=== PATIENT | female | born 1960 | race Caucasian/White ===

== ENCOUNTER 2017-05-23 07:17 | Inpatient (IN) | payer OTHER ==
[~2017-05-23] VITALS: Ht 165.1 cm; Wt 88.5 kg
--- NOTE | 2017-05-23 12:00 | NUR ---
PRE ASSESSMENT: A 56 YO FEMALE WITH STEADY GAIT IN INTAKE . BP 117/69 P 108 R 18 T 96.9 SHE REPORTS MEDICAL HX OF MIGRAINES AND CHRONIC PAIN TO R ANKLE AND WRIST FROM PREVIOUS FX.SHE REPORTS MIGRAINES,INSOMNIA AND HYPERLIPIDEMIA. SHE STATES SHE HAS BEEN ON SUBOXONE MAINTENANCE FOR PAIN AND STOPPED IT 2 WEEKS AGO BUT TOOK 2 MG YESTERDAY AND 2 MG SL THIS AM ABOUT 10AM. SHE ALSO STATES SHE TAKES TEMAZEPAM 120MG PO NIGHTLY AND CANNOT STOP AND FEELS SHE NEEDS HELP GETTING OFF THE PILLS. SHE WAS PRESCRIBED CLONIDINE AND ROBAXIN TO COME SUBOXONE AND HAS BEEN TAKING THAT AT HOME WELL CYMBALTA FOR DEPRESSION. SHE TAKES MAXALT PRN FOR MIGRAINES AND BROUGHT HOME MEDS IN WITH HER. SHE STATES SHE IS FEARFUL ABOUT COMING IN AND NEEDS HELP. ALLERGY TO COMPAZINE. SHE DENIES SEIZURE HISTORY. WILL ASSESS PT ON UNIT.
[2017-05-23] MEDS ORDERED: ONDANSETRON 4 MG/2 ML VIAL IM PRN (12:15)
[2017-05-23] MEDS ORDERED: diphenhydrAMINE 50 MG CAPSULE PO PRN (12:15)
[2017-05-23] MEDS ORDERED: ONDANSETRON ODT 4 MG TAB.RAPDIS SL PRN (12:15)
[2017-05-23] MEDS ORDERED: LORAZEPAM 2 MG/1 ML VIAL IM PRN (12:15)
[2017-05-23] MEDS ORDERED: MAGNESIUM HYDROXIDE 30 ML LIQUID UDC PO PRN (12:15)
[2017-05-23] MEDS ORDERED: LOPERAMIDE HCL 2 MG CAPSULE PO PRN ×2 (12:15)
[2017-05-23] MEDS ORDERED: LORAZEPAM 1 MG TABLET PO PRN ×2 (12:15)
[2017-05-23] MEDS ORDERED: MIRALAX 17 GM POWD.PACK PO PRN (12:15)
[2017-05-23] MEDS ORDERED: MAG HYDROX/AL HYDROX/SIMETH 30 ML LIQUID UDC PO PRN (12:15)
[2017-05-23] MEDS ORDERED: BUPRENORPHINE HCL 2 MG TAB.SUBL SL PRN (12:15)
[2017-05-23] MEDS ORDERED: METHOCARBAMOL 750 MG TABLET PO PRN (12:15)
[2017-05-23] MEDS ORDERED: ASPIRIN/ACETAMINOPHEN/CAFFEINE TABLET PO PRN ×2 (12:15→15:00)
[2017-05-23] MEDS ORDERED: QUET100T PO (12:18)
[2017-05-23] MEDS ORDERED: TOPI25TA49 PO (12:18)
[2017-05-23] MEDS ORDERED: MELA5TAB PO (12:18)
[2017-05-23] MEDS ORDERED: RIZA10TA27 PO (12:18)
[2017-05-23] MEDS ORDERED: ONDA4TAB10 PO (12:18)
[2017-05-23] MEDS ORDERED: DULO20CA PO (12:18)
[2017-05-23] MEDS ORDERED: GABA-534 PO (12:18)
[2017-05-23] MEDS ORDERED: METH-406 PO (12:18)
[2017-05-23] MEDS ORDERED: MAGN400C PO (12:18)
[2017-05-23] MEDS ORDERED: CLON0.1T PO (12:18)
[2017-05-23] MEDS ORDERED: AMOX1TAB15 PO (12:18)
[2017-05-23 13:00] VITALS: BP 117/69
[2017-05-23 13:03] LABS: BASOPHILS # (AUTO) 0.1 K/uL (0.0-8.0); BASOPHILS % (AUTO) 0.8 % (0.0-2.0); EOSINOPHILS # (AUTO) 0.1 K/uL (0.0-0.7); EOSINOPHILS % (AUTO) 1.1 % (0.0-7.0); HEMATOCRIT 44.8 % (37-47); HEMOGLOBIN 14.8 G/DL (12.0-16.0); LYMPHOCYTES # (AUTO) 2.9 K/UL (0.8-4.8); LYMPHOCYTES % (AUTO) 41.1 % (20.5-51.5); MEAN CORPUSCULAR HGB CONC 33 g/dL (32.0-37.0); MEAN CORPUSCULAR VOLUME 90.8 FL (81.0-99.0); MONOCYTES # (AUTO) 0.5 K/UL (0.1-1.30); MONOCYTES % (AUTO) 7.6 % (0.0-11.0); NEUTROPHILS # (AUTO) 3.6 K/UL (1.8-8.9); NEUTROPHILS % (AUTO) 49.4 % (38.5-71.5); PLATELET COUNT (AUTO) 251 K/UL (150-450); RED BLOOD CELL COUNT(AUTO) 4.93 MIL/UL (4.2-5.4); WHITE BLOOD COUNT (AUTO) 7.2 K/UL (4.0-11.2)
[2017-05-23 13:06] LABS: ETHANOL < 3 MG/DL (0-0)
[2017-05-23 13:13] LABS: ALANINE AMINOTRANSFERASE 30 U/L (14-59); ALKALINE PHOSPHATASE 151 U/L (50-136); ASPARTATE AMINOTRANSFERASE 27 U/L (15-37); BILIRUBIN,TOTAL 0.6 mg/dL (0.2-1.0); CARBON DIOXIDE 30 mmol/L (21-32); CHLORIDE 103 mmol/L (98-107); GLUCOSE 129 mg/dL (74-106); POTASSIUM 3.9 mmol/L (3.5-5.1); UREA NITROGEN, BLOOD 18 mg/dL (7-18)
[2017-05-23 13:21] LABS: THYROID STIMULATING HORMONE 2.248 mIU/mL (0.358-3.740)
--- NOTE | 2017-05-23 14:16 | NUR ---
ADMISSION: A 56 Y.O. FEMALE ADMITTED FOR MEDICALLY SUPERVISED DETOX OF BENZODIAZEPINES. SHE PRESENTS WITH ANXIOUS MOOD AND CONGRUENT AFFECT. VS WNL SHE REPORTS TAKING TEMAZEPAM 120 MG NIGHTLY FOR 4-5 YEARS AND WAS TAKING SUBOXONE UNTIL 2 WEEKS AGO. SHE STATES SHE RELAPSED AND TOOK 2 MG OF SUBOXONE YESTERDAY AND 2 MG SL TODAY. SHE ALSO REPORTED ABUSING ROBAXIN (16-17 PILLS DAILY) MD PRESCRIBED HER ROBAXIN TO ASSIST HER IN THE DETOX PROCESS FROM SUBOXONE AT HOME. PT REPORTS SHE HAS BEEN SNEAKING AND LYING AND IS TIRED OF IT. SHE STATES SHE NEEDS HELP AND CANNOT STOP USING ON HER OWN. PT STATES SHE HAS A HX OF CHRONIC PAIN TO R ANKLE AND R WRIST. SHE C/O MIGRAINES,INSOMNIA,ANXIETY AND HYPERLIPIDEMIA. HER PCP IS SHYAM HONG. HER PAIN MANAGEMENT MD IS JOSE WRIGHT. SHE LIVES AT HOME WITH AND 13 YO SON. SHE WORKS AN SENIOR UI DEVELOPER.PT STATES SHE HAD 3 YEARS STARTING [id number]. SHE HAS BEEN IN [place] AND [place] OVER 10 YEARS AGO. SHE DENIES S/I AND H/I. SHE DENIES SEIZURE HX. SHE STATES SHE OVERDOSED AND WAS HOSPITALIZED FOR 1 DAY 1 MONTH AGO. ORIENTED PT TO STAFF AND UNIT. WILL CONTINUE TO MONITOR AND PROVIDE SAFE AND SUPPORTIVE ENVIRONMENT. Addendum: 05/23/17 at 1818 by ALBERTO LEE RN CRUZWA 6 ON ADMISSION
[2017-05-23] MEDS ORDERED: TRAZODONE 50 MG TABLET PO PRN (15:00)
[2017-05-23 15:15] LABS: *URINE HCG, QUAL NEGATIVE (NEGATIVE)
[2017-05-23 15:28] LABS: *AMPHETAMINE, URINE NEGATIVE (NEGATIVE); *BARBITURATE, URINE NEGATIVE (NEGATIVE); *CANNABINOID, URINE NEGATIVE (NEGATIVE); *COCCAINE, URINE NEGATIVE (NEGATIVE); *OPIATE, URINE NEGATIVE (NEGATIVE); *PHENCYCLIDINE SCREEN,URINE NEGATIVE (NEGATIVE)
[2017-05-23] MEDS: BACLOFEN 20 MG TABLET PO PRN (15:45)
--- NOTE | 2017-05-23 15:50 | NUR ---
PT C/O SEVERE ANXIETY ,SWEATS BODY ACHES AND RESTLESSNESS. CIWA 16. PRN ATIVAN 2 MG PO GIVEN ORDERED. BACLOFEN PRN GIVEN. WILL MONITOR EFFECTIVENESS.
[2017-05-23] MEDS ORDERED: DULOXETINE 20 MG CAPSULE.DR PO SCH (16:30)
--- NOTE | 2017-05-23 16:50 | NUR ---
PT STATES THE ATIVAN AND BACLOFEN WAS ONLY MILDLY EFFECTIVE. ADDITIONAL MOTRIN GIVEN FOR PAIN 02/19.
[2017-05-23] MEDS: IBUPROFEN 600 MG TABLET PO PRN (16:52)
[2017-05-23] MEDS: LORAZEPAM 1 MG TABLET PO SCH ×2 (17:33→21:29)
--- NOTE | 2017-05-23 17:50 | NUR ---
PT STATES MOTRIN WAS EFFECTIVE. PAIN 2/10.
[2017-05-23] MEDS ORDERED: LORAZEPAM 1 MG TABLET PO SCH (18:00)
--- NOTE | 2017-05-23 18:52 | NUR ---
END OF SHIFT: PT IS RESTING IN BED. CALL HERNANDEZ IN REACH. BED LOCKED AND LOW. WILL PASS SHIFT REPORT TO ONCOMING NIGHT NURSE.
--- NOTE | 2017-05-23 19:50 | NUR ---
Start of Shift Note: Report received from day shift nurse. Pt is a 56 yo female admitted on 05/23/17 for medically-supervised withdrawal from benzodiazepines. Pt reported taking 120mg tempazepam daily for 4-5 years. Pt is on a 5-day Ativan taper. Pt received with last CIWA=8, and PRN's Ativan, Baclofen, and Motrin were given during day shift. Pt is a full code, reports allergy to compazine, and is on a regular diet. PMHx: migraines, chronic right wrist and ankle pain, insomnia, and anxiety. Pt received in room and reports severe anxiety, diaphoresis, tremor. Bed is in low position and locked, side rails up x2, call light within reach. Will continue to monitor.
[2017-05-23 20:00] VITALS: BP 118/71
[2017-05-23] MEDS: GABAPENTIN 300 MG CAPSULE PO SCH (21:28)
[2017-05-23] MEDS: TOPIRAMATE 25 MG PO SCH (21:28)
[2017-05-23] MEDS: TRAZODONE 100 MG TABLET PO SCH (21:29)
--- NOTE | 2017-05-23 21:40 | NUR ---
Psychiatrist Communication: Pt stated that she takes her Cymbalta at bedtime. Pt requested to take her Cymbalta at night instead of waiting for 0900 dose. Psychiatrist made aware with new order to change 40mg Cymbalta PO daily to 40mg Cymbalta PO HS. New orders noted and carried out.
[2017-05-23] MEDS: DULOXETINE 20 MG CAPSULE.DR PO SCH (22:02)
[2017-05-23] MEDS ORDERED: DULOXETINE 20 MG CAPSULE.DR PO ONE (22:04)
[2017-05-24] VITALS: BP 116/79
--- NOTE | 2017-05-24 | NUR ---
CIWA Deferred: CIWA is deferred for sleep. V/S stable. All safety precautions are in place. Will continue to monitor. Addendum: 05/24/17 at 0038 by FLORIDA PERDOMO RN Amended: Links added.
[2017-05-24 04:00] VITALS: BP 107/76
--- NOTE | 2017-05-24 04:00 | NUR ---
CIWA Deferred: CIWA is deferred for sleep. V/S stable. All safety precautions are in place. Will continue to monitor. Addendum: 05/24/17 at 0430 by FLORIDA PERDOMO RN Amended: Links added.
[2017-05-24] MEDS: HYDROXYZINE PAMOATE 25 MG CAPSULE PO PRN ×3 (06:14→22:08)
--- NOTE | 2017-05-24 06:16 | NUR ---
PRN Vistaril: Patient complains of increased anxiety. Administered PRN Vistaril as ordered. Will continue to monitor.
--- NOTE | 2017-05-24 07:18 | NUR ---
PRN Reassessment: Patient reports that the PRN Vistaril was not effective in reducing anxiety. Endorsed follow-up to day shift nurse.
--- NOTE | 2017-05-24 07:35 | NUR ---
End of Shift Note: Pt is a 56 yo female admitted to [facility] on 05/23/17 for medically-supervised withdrawal from benzodiazepines. Patient reports PMHx of migraines, chronic right wrist and ankle pain, insomnia, and anxiety. Pt is a full code. Pt reports allergy to compazine. Pt is on a regular diet. Pt reported taking 120mg tempazepam daily for 4-5 years, and was placed on a 5-day Ativan taper. Scheduled medication regime effectively managed s/s of withdrawal this shift, in addition to PRN Vistaril for anxiety. Last CIWA=8 at 20:00.V/S stable throughout shift. Total fluid intake this shift: 4355 ml; output: urine x 2 and BM x 1. Pt is currently in bed and slept 8 hours this shift. All needs attended and met. Pt endorsed to day shift nurse.
[2017-05-24 08:00] VITALS: BP 126/87
[2017-05-24] MEDS: LORAZEPAM 1 MG TABLET PO SCH ×3 (08:22→21:15)
[2017-05-24] MEDS: BACLOFEN 20 MG TABLET PO PRN ×2 (08:22→18:40)
[2017-05-24] MEDS: IBUPROFEN 600 MG TABLET PO PRN ×2 (08:22→18:40)
[2017-05-24] MEDS: GABAPENTIN 300 MG CAPSULE PO SCH ×3 (08:23→21:15)
[2017-05-24] MEDS: MULTIVITAMINS,THERAPEUTIC TABLET PO SCH (08:23)
[2017-05-24] MEDS: TOPIRAMATE 25 MG PO SCH ×2 (08:24→21:15)
--- NOTE | 2017-05-24 08:25 | NUR ---
START OF SHIFT: RECEIVED PT A/O X 4. SHE PRESENTS WITH ANXIOUS MOOD AND CONGRUENT AFFECT. SHE REPORTS R ANKLE PAIN 6/10 AND H/A 5/10. SHE ALSO REPORTS ANXIETY AND RESTLESSNESS. PRN BACLOFEN AND PRN MOTRIN GIVEN TO MANAGE PAIN. ATIVAN TAPER IN PROGRESS TO MANAGE S/S OF W/D WHICH INCLUDE ANXIETY,RESTLESSNESS AND "FEELING SHAKY INSIDE". CIWA 8. ENCOURAGED INCREASED FLUIDS TO ASSIST IN FACILITATING DETOX PROCESS. WILL CONTINUE TO MONITOR AND OFFER SUPPORT.
[2017-05-24] MEDS ORDERED: DULOXETINE 20 MG CAPSULE.DR PO SCH (09:00)
[2017-05-24] MEDS ORDERED: TUBERCULIN,PURIF.PROT.DERIV. 5 TU/0.1 ML TEST ID ONE (09:00)
--- NOTE | 2017-05-24 09:25 | NUR ---
PT STATES THE MOTRIN AND BACLOFEN WAS EFFECTIVE. PAIN NW 2/10 IN ANKLE AND 2/10 HEAD.
[2017-05-24 12:00] VITALS: BP 140/90
[2017-05-24] MEDS: ACETAMINOPHEN 325 MG TABLET PO PRN (12:47)
--- NOTE | 2017-05-24 12:50 | NUR ---
PRN TYLENOL AND PRN VISTARIL GIVEN FOR REPORTED H/A AND BODY PAIN 04/21. WILL MONITOR EFFECTIVENESS.
--- NOTE | 2017-05-24 13:50 | NUR ---
PRN VISTARIL AND TYLENOL EFFECTIVE. PAIN 2/10 ON SCALE AND SHE STATES HER ANXIETY HAS LESSENED.
[2017-05-24 14:08] LABS: HEPATITIS B SURFACE AG Negative (Negative)
[2017-05-24 16:00] VITALS: BP 125/89
[2017-05-24] MEDS: CLONIDINE HCL 0.1 MG TABLET PO PRN (18:39)
--- NOTE | 2017-05-24 19:11 | NUR ---
END OF SHIFT: PT CONTINUES ON ATIVAN TAPER. LAST CIWA 7. SHE RESTED ON AND OFF TODAY AND WAS COMPLIANT WITH INCREASED FLUIDS. SHE C/O ANXIETY AND GENERALIZED PAIN AND H/A . PRN VISTARIL AND MOTRIN PRN GIVEN BETWEEN SCHEDULED DOSES AND CLONIDINE,MOTRIN AND BACLOFEN GIVEN AT END OF SHIFT. WILL ENDORSE EFFECTIVENESS TO NIGHT NURSE. PT ENCOURAGED TO ATTEND [address] WILL PASS SHIFT REPORT TO ONCOMING NIGHT NURSE.
[2017-05-24 20:00] VITALS: BP 115/68
--- NOTE | 2017-05-24 20:00 | NUR ---
Start of Shift Note: Report received from day shift nurse. Pt is a 56 Y/O female admitted on 05/23/17 for medically-supervised withdrawal from benzodiazepines. Pt reports taking Restoril 120mg/day for 4-5 years. Pt is on a 5-day Ativan taper. Pt received with last CIWA=7, and PRNs Catapres, Baclofen, Motrin, and Vistaril were given during day shift. Pt reports allergy to compazine, is a full code, and is on a regular diet. PMHx: migraines, chronic right wrist and ankle pain, insomnia, anxiety. Pt received in room and reports severe anxiety, agitation, diaphoresis, tremor. Bed is in low position and locked, side rails up x2, call light within reach. Will continue to monitor.
[2017-05-24] MEDS: TRAZODONE 100 MG TABLET PO SCH (21:15)
[2017-05-24] MEDS: DULOXETINE 20 MG CAPSULE.DR PO SCH (21:15)
--- NOTE | 2017-05-24 22:08 | NUR ---
PRN Vistaril: Patient complains of severe anxiety; patient noted to be labile and reports that she is unable to sleep because she is worrying. Administered PRN Vistaril as ordered. Will continue to monitor.
--- NOTE | 2017-05-24 23:10 | NUR ---
PRN Reassessment: Patient reports that PRN Vistaril was only mildly effective. Informed patient that PRN Clonidine will be available for administration in 2 hours, and encouraged additional use of non-pharmacological measures to reduce anxiety until medication can be administered.
--- NOTE | 2017-05-24 23:50 | NUR ---
Anxiety Reassessment: Patient asleep at this time. No need for pharmacological intervention for anxiety.
--- NOTE | 2017-05-25 | NUR ---
V/S Refused, CIWA Deferred: Patient refuses 00:00 V/S. Patient educated on risks/benefits and still refused. CIWA is deferred for sleep. All safety precautions are in place. Will continue to monitor. Addendum: 05/25/17 at 0046 by FLORIDA PERDOMO RN Amended: Links added.
--- NOTE | 2017-05-25 04:00 | NUR ---
Vitals Refused, CIWA Deferred: Patient refuses ordered 04:00 V/S. Patient educated on risks/benefits but still refused. CIWA is deferred for sleep. All safety precautions are in place. Will continue to monitor. Addendum: 05/25/17 at 0445 by FLORIDA PERDOMO RN Amended: Links added.
[2017-05-25] MEDS: CLONIDINE HCL 0.1 MG TABLET PO PRN (05:53)
--- NOTE | 2017-05-25 05:53 | NUR ---
PRN Clonidine: Patient complains of increased anxiety. Patient reports experiencing frightening nightmares. Administered PRN Clonidine as ordered. Will continue to monitor.
--- NOTE | 2017-05-25 06:55 | NUR ---
PRN Reassessment: Patient is in bed with eyes closed. Respirations are even and unlabored. No s/s of acute distress noted. PRN Clonidine effective AEB patient's ability to rest. Will continue to monitor.
--- NOTE | 2017-05-25 07:11 | NUR ---
End of Shift Note: Pt is a 56 Y/O female admitted to [facility] on 05/23/17 for medically-supervised withdrawal from benzodiazepines. Patient reported a PMHx of migraines, chronic right wrist and ankle pain, insomnia, and anxiety. Pt is a full code status, reports allergy to compazine, and is on a regular diet. Pt reported taking 120mg tempazepam daily for 4-5 years. Pt continues on a 5-day Ativan taper. Scheduled medication regime effectively managed s/s of withdrawal this shift, in addition to PRN Vistaril and PRN Catapres for anxiety. Last CIWA=8 at 05:50.V/S stable throughout shift. Total fluid intake this shift: 1210 ml; output: urine x 3 and BM x 1. Pt is currently in bed and slept 6 hours this shift. All needs attended and met. Pt endorsed to day shift nurse.
--- NOTE | 2017-05-25 07:30 | NUR ---
START OF SHIFT Rcvd endorsement from ongoing nurse, client is a 56 y/o admitted for benzodiazepine withdrawal, She is placed on 5 day Ativan taper (3rd day), last CIWA 8 @ 0600. PRN Vistaril for anxiety, Clonidine for anxiety noted effective, client slept 6 hrs. Client is in bed, a/o x4. she presents with anxious mood, flat affect, flushed face, fine tremors. Client stated "I am so anxious, my whole body aches, my legs won't stop twitching." Client appears irritable, skin warm and moist to touch, abdomen soft, nontender, quadrant x 4 active. Encourage client to increase fluid intake to facilitate detox and to attend group therapy for skills to maintain sobriety. Denied history of withdrawal induced seizures. Client is on seizure precautions. Allergies to prochlorperazine, full code, regular diet. Call light within reach. Side rails x 2 up/padded. Will continue to monitor.
[2017-05-25] MEDS: LORAZEPAM 1 MG TABLET PO SCH ×4 (08:06→20:36)
[2017-05-25] MEDS: GABAPENTIN 300 MG CAPSULE PO SCH ×3 (08:06→20:36)
[2017-05-25] MEDS: MULTIVITAMINS,THERAPEUTIC TABLET PO SCH (08:06)
[2017-05-25] MEDS: TOPIRAMATE 25 MG PO SCH ×2 (08:11→20:36)
[2017-05-25] MEDS: BACLOFEN 20 MG TABLET PO PRN (08:11)
[2017-05-25] MEDS: MAXALT PO PRN ×2 (08:15→21:54)
[2017-05-25 08:20] VITALS: BP 107/67
--- NOTE | 2017-05-25 08:20 | NUR ---
PRN Baclofen 20mg PO administered for muscle spasms on lower extremities 05/21. Call light within reach. Will continue to monitor.
--- NOTE | 2017-05-25 09:20 | NUR ---
Reassessment PRN Baclofen 20mg Client reports some relief from muscle spasms on lower extremities 2/10, but tolerable.. Call light within reach.
[2017-05-25] MEDS ORDERED: LORAZEPAM 1 MG TABLET PO ONE (10:45)
[2017-05-25] MEDS: KETOROLAC TROMETHAMINE 30 MG INJ IM PRN ×2 (10:58→17:29)
--- NOTE | 2017-05-25 10:58 | NUR ---
One time Ativan 2mg, Toradol 30mg Inj Client presents with anxious mood, CIWA 11, Ativan 2mg Po administered. Toradol 30mg Inj IM TO R deltoid for chronic pain 06/21 on R wrist/ankle, will continue to monitor. Call light within reach.
--- NOTE | 2017-05-25 11:58 | NUR ---
Reassessment One time Ativan 2mg, Toradol 30mg Inj Client appears less anxious, she was able to join group for yoga, CIWA 6, Ativan 2mg effective Toradol 30mg Inj IM to R deltoid for chronic pain 11/21 on R wrist/ankle, but tolerable. Call light within reach.
[2017-05-25 12:00] VITALS: BP 110/71
[2017-05-25] MEDS: CLONIDINE HCL 0.1 MG TABLET PO SCH (14:35)
[2017-05-25] MEDS: BACLOFEN 20 MG TABLET PO SCH ×2 (14:35→20:36)
[2017-05-25 17:20] VITALS: BP 114/78
--- NOTE | 2017-05-25 17:29 | NUR ---
PRN Toradol 30mg Inj Toradol 30mg Inj IM to L deltoid for chronic pain 06/21 on R wrist/ankle, will continue to monitor. Call light within reach.
--- NOTE | 2017-05-25 17:59 | NUR ---
Reassessment PRN Toradol 30mg Inj Client reports some relief from pain 2/10 on R wrist/ankle, Toradol effective. Call light within reach.
--- NOTE | 2017-05-25 18:56 | NUR ---
END OF SHIFT Will endorse client to incoming nurse, Client is in bed, a/o x 4, anxious mood, irritable, emotional volatility, restless legs, moist skin, and fatigue are some of withdrawal symptoms experienced by the client and managed with Ativan taper (Day 2 of 5), tolerating well, last CIWAS 6 @ 1700. Client is fully ambulatory. PRN Toradol for chronic pain 06/21 on R wrist/ankle, One time dose Ativan 2mg for anxiety CIWA 11, after an hr CIWA 6, Baclofen 20mg for muscle spasms, noted effective. Client was compliant with group therapy. Adequate PO fluid intake 2250mL, void x 4. Call light within reach. Safety measures rendered and all needs met.
--- NOTE | 2017-05-25 19:15 | NUR ---
Start of Shift Note: Patient is a 56 y/o female admitted on 05/23/17 for Benzo dependence. Patient reported with medical history of Migraines, Chronic right wrist & right ankle pain, Insomnia & Anxiety. Patient is on a regular diet with allergies to Comazine. Full Code status. Patient is on a Ativan taper and tolerating well. Skin noted to be intact. Last CIWA is 6. Pt was given PRN Baclofen, Toradol x2 & one time order of Ativan during day shift. Patient is alert & oriented x4. No shortness of breath noted. Respiration even & unlabored. Abdomen soft & non-distended. No nausea/vomiting noted. Patient complains of 8/10 body aches and moderately severe headache. Hand tremors noted. Patient denies hallucinations. Safety measures in place. Bed locked in lowest position. Both side rails up. Call light within pts reach. Will continue to monitor patient.
[2017-05-25 20:00] VITALS: BP 150/85
[2017-05-25] MEDS: DULOXETINE 20 MG CAPSULE.DR PO SCH (20:36)
[2017-05-25] MEDS: TRAZODONE 100 MG TABLET PO SCH (20:45)
[2017-05-25] MEDS ORDERED: CLONIDINE HCL 0.1 MG TABLET PO SCH (21:00)
[2017-05-25] MEDS: diphenhydrAMINE 50 MG CAPSULE PO PRN (21:52)
[2017-05-25] MEDS: CLONIDINE HCL 0.2 MG TABLET PO SCH (21:52)
--- NOTE | 2017-05-25 21:52 | NUR ---
PRN Benadryl and Maxalt Patient complains of severe migraine. Pt appears restless and anxious with facial grimacing noted. Pt also requesting for medication to help her sleep. PRN Benadryl and Maxalt administered as ordered. Will reassess for effectiveness of medication.
--- NOTE | 2017-05-25 22:52 | NUR ---
PRN Reassessment Patient still awake at this time and verbalized relief from migraine. Will continue to monitor patient.
[2017-05-25] MEDS: HYDROXYZINE PAMOATE 25 MG CAPSULE PO PRN (22:58)
--- NOTE | 2017-05-25 22:58 | NUR ---
PRN Vistaril Patient complianing of anxiety. PRN Vistaril administered as ordered. Will continue to monitor patient.
--- NOTE | 2017-05-25 23:58 | NUR ---
PRN Reassessment Patient asleep in bed and appears comfortable. No shortness of breath noted. Respiration even & unlabored. Safety measures in place. Will continue to monitor patient.
--- NOTE | 2017-05-26 | NUR ---
Vitals/Ciwa deferred Patient refuses vitals at this time. Patient asleep in bed and appears comfortable. No s/s of distress noted. Unable to assess Ciwa at this time d/t pt asleep. Will continue to monitor patient.
[2017-05-26] MEDS: HYDROXYZINE PAMOATE 25 MG CAPSULE PO PRN ×4 (06:34→22:05)
--- NOTE | 2017-05-26 06:34 | NUR ---
PRN Vistaril Patient complains of anxiety. PRN Vistaril administered as ordered. Will monitor for effectiveness of medication. Will continue to monitor patient.
--- NOTE | 2017-05-26 06:57 | NUR ---
End of Shift Note: Pt had an uneventful night. Pt continues on a her Ativan taper and tolerating well. Pt reported that medication is effective in decreasing her withdrawal symptoms. Pt remained stable and vitals remains WNL. PRN Benadryl, Maxalt & Vistaril x2. Pt remained compliant with medications and treatment plan. Last CIWA is 6 @ 0630. Pt slept well throughout my shift. Pt was able to sleep for a total of 7 hours. Consumed 1596 ml of fluids. Voided 3x with no bowel movement. All needs attended met. Safety measures in place. Will endorse pt to day shift nurse.
--- NOTE | 2017-05-26 07:30 | NUR ---
START OF SHIFT Pt 56 y/o female admitted for BZO dependence. Pt received awake and went to patio. Pt alert and oriented to name, place, and time. Perrla. Skin warm and slightly moist to touch. Respirations even and unlabored. Pt appeared slightly anxious with pressured speech noted. It was reported that pt slept for 7 hours last night. Bed on lowest position with side rails x2 up for safety. Call light within reach. No distress noted at this time.
[2017-05-26 08:00] VITALS: BP 125/81
[2017-05-26] MEDS: TOPIRAMATE 25 MG PO SCH ×2 (08:24→22:05)
[2017-05-26] MEDS: GABAPENTIN 300 MG CAPSULE PO SCH ×3 (08:24→20:58)
[2017-05-26] MEDS: BACLOFEN 20 MG TABLET PO SCH ×4 (08:26→22:05)
[2017-05-26] MEDS: CLONIDINE HCL 0.1 MG TABLET PO SCH ×2 (08:26→14:33)
[2017-05-26] MEDS: MULTIVITAMINS,THERAPEUTIC TABLET PO SCH (08:26)
[2017-05-26] MEDS: LORAZEPAM 1 MG TABLET PO SCH ×4 (08:26→21:00)
[2017-05-26] MEDS: KETOROLAC TROMETHAMINE 30 MG INJ IM PRN ×3 (08:27→22:07)
--- NOTE | 2017-05-26 08:40 | NUR ---
PRN Pt with c/o generalized body pain 06/21. Toradol IM prn per MD order given and tolerated well.
[2017-05-26] MEDS ORDERED: LORAZEPAM 1 MG TABLET PO SCH (09:00)
--- NOTE | 2017-05-26 09:40 | NUR ---
EASTON SANTORO Pt observed walking around in the patio. No distress noted at this time.
[2017-05-26 12:59] VITALS: BP 94/54
[2017-05-26] MEDS: IBUPROFEN 600 MG TABLET PO PRN (13:06)
--- NOTE | 2017-05-26 13:06 | NUR ---
Therapist prompted client about group times. Client stated she is going to try to attend all groups today.
--- NOTE | 2017-05-26 13:10 | NUR ---
PRN Pt states has 8/10 body pain. Motrin po prn per MD order given and tolerated well.
--- NOTE | 2017-05-26 13:12 | NUR ---
PRN Pt states feels anxious. Pressured speech noted. Vistaril po prn per MD order given and tolerated well.
--- NOTE | 2017-05-26 14:10 | NUR ---
PRN YVAN Pt states pain 02/19.
--- NOTE | 2017-05-26 14:12 | NUR ---
EASTON SANTORO Pt observed in patio with other clients. No distress noted at this time.
[2017-05-26 16:00] VITALS: BP 98/51
--- NOTE | 2017-05-26 18:30 | NUR ---
END OF SHIFT Pt 56 y/o female admitted for bzo dependence. Pt alert and oriented to name, place, and time. Perrla. Skin warm and slightly moist to touch. Respirations even and unlabored. Bilateral hand tremors noted. Pt obseved mostly in patio throughout the day. Pt was seen by Dr. Randle. Pt medication compliant and tolerated well. No ASE noted. Bed on lowest position with side rails x2 up for safety. Call light within reach. No distress noted at this time.
--- NOTE | 2017-05-26 19:30 | NUR ---
START OF SHIFT Pt 56 y/o female admitted for Benzo dependence. Pt is A/O X 4,on full code status,regular diet,allergic to Compazine.Skin warm and dry to touch. Respirations even and unlabored. Pt is medication compliant,on 5 day Ativan taper,tolerating well. No A/R noted. Bed is locked in lowest position with side rails x2 up for safety. Call light within pt's reach. Will continue to monitor patient.
[2017-05-26 20:00] VITALS: BP 125/72
[2017-05-26] MEDS: DULOXETINE 20 MG CAPSULE.DR PO SCH (20:58)
[2017-05-26] MEDS: TRAZODONE 100 MG TABLET PO SCH ×2 (20:59→21:00)
[2017-05-26] MEDS: CLONIDINE HCL 0.2 MG TABLET PO SCH (20:59)
[2017-05-26] MEDS: diphenhydrAMINE 50 MG CAPSULE PO PRN (22:05)
--- NOTE | 2017-05-26 22:09 | NUR ---
PRN MEDS PRN TORADOL IM GIVEN FOR GENERAL BODY ACHE,PAIN LEVEL 8/10 PRN VISTARIL AND BENADRYL GIVEN ORDERED FOR C/O ANXIETY AND INSOMNIA RESPECTIVELY PER PT REQUEST.PT REFUSED TO TAKE TRAZODONE ORDERED.WILL MONITOR.
[2017-05-27] VITALS: BP 113/66
[2017-05-27 04:00] VITALS: BP 112/58
[2017-05-27] MEDS: HYDROXYZINE PAMOATE 25 MG CAPSULE PO PRN ×4 (06:25→23:41)
--- NOTE | 2017-05-27 07:00 | NUR ---
END OF SHIFT Pt is 56 y/o female admitted for Benzo dependence. Pt is A/O X 4,on full code status,regular diet,allergic to Compazine.Skin warm and dry to touch. Respirations even and unlabored. Pt is medication compliant,on 5 day Ativan taper,tolerating well. PRN Benadryl,Vistaril and Toradol injection were given and were effective.Pt slept for 5 hrs,fluid intake was 1355 hrs,voided x 2. .No A/R noted. Bed is locked in lowest position with side rails x2 up for safety. Call light within pt's reach. Will continue to monitor patient.
--- NOTE | 2017-05-27 07:15 | NUR ---
START OF SHIFT NOTE: RECEIVED PT FROM TAPE DUPLICATOR NURSE, PT IS IN STABLE CONDITION NO S/S OF PAIN OR DISCOMFORT. PT IS ADMITTED TO [facility] OPI[facility]/BENZO/ROBAXIN WITHDRAWAL/DEPENDENCE. PT WITHOUT ADVERSE REACTION TO TAPER MEDICATION PT IS VERY EMOTIONAL AND LIABLE. WILL CONTINUE TO MONITOR PT FOR ANY CHANGES AND WILL CONTINUE TO MONITOR PT FOR ANY CHANGES
[2017-05-27] MEDS: MULTIVITAMINS,THERAPEUTIC TABLET PO SCH (08:50)
[2017-05-27] MEDS: GABAPENTIN 300 MG CAPSULE PO SCH ×3 (08:50→21:11)
[2017-05-27] MEDS: BACLOFEN 20 MG TABLET PO SCH ×3 (08:50→21:11)
[2017-05-27] MEDS: LORAZEPAM 1 MG TABLET PO SCH ×3 (08:50→21:09)
[2017-05-27] MEDS: CLONIDINE HCL 0.1 MG TABLET PO SCH (08:50)
[2017-05-27] MEDS: TOPIRAMATE 25 MG PO SCH ×2 (08:51→21:11)
[2017-05-27] MEDS: KETOROLAC TROMETHAMINE 30 MG INJ IM PRN ×2 (08:55→17:17)
--- NOTE | 2017-05-27 08:55 | NUR ---
PRN TORADOL: PT WITH COMPLAINTS OF GENERALIZED BODY PAIN PT'S PAIN LEVEL 8/10, PT'S PAIN THRESHOLD IS VERY LOW AND WILL BE CONSTANTLY IN PAIN Addendum: 05/27/17 at 1658 by RIDDHI GEORGE RN PT RECEIVED PRN TORADOL.
[2017-05-27] MEDS ORDERED: LORAZEPAM 1 MG TABLET PO SCH (09:00)
--- NOTE | 2017-05-27 09:30 | NUR ---
PRN- REASSESSMENT: PT STATED PAIN LEVEL OF GENERALIZED BODY PAIN IS 3/10 WITH SLIGHT IMPROVEMENT.
[2017-05-27 10:00] VITALS: BP 122/79
--- NOTE | 2017-05-27 11:02 | NUR ---
PRN ADMINISTRATION: PT VERBALIZED SHE IS ANXIOUS AND UNCOMFORTABLE, PT IS RESTLESS AND FIDGETY. PT RECEIVED PRN VISTARIL
--- NOTE | 2017-05-27 11:30 | NUR ---
PRN RE-ASSESSMENT: PT VERBALIZED ANXIETY IS BETTER, WITH COMBINATION OF CLONIDINE, PT STATES IT IS EFFECTIVE AND WILL ATTEND GROUP.
[2017-05-27] MEDS ORDERED: CLONIDINE HCL 0.1 MG TABLET PO PRN (12:15)
--- NOTE | 2017-05-27 12:32 | NUR ---
PRN ADMINISTRATION: PT WITH VERBALIZATION SHE IN ANXIOUS, TEARFUL , AND UNCOMFORTABLE, PRN CLONIDINE WAS ADMINISTERED. WILL RE-ASSESS PT FOR EFFECTIVENESS.
--- NOTE | 2017-05-27 13:00 | NUR ---
RE-ASSESSMENT PRN: PT STATES CLONIDINE IS MILDLY EFFECTIVE SHE VERBALIZES ANXIETY AND HAS RESTLESS LEGS AND LOWER EXTREMITIES.
[2017-05-27] MEDS: DICYCLOMINE HCL 20 MG TABLET PO PRN ×2 (13:14→21:10)
--- NOTE | 2017-05-27 13:14 | NUR ---
PRN BENTYL: PT WITH COMPLAINTS OF STOMACH PAIN AND DISCOMFORT, PRN BENTYL WAS ADMINISTERED
--- NOTE | 2017-05-27 13:45 | NUR ---
PRN RE-ASSESSMENT: PT STATED BENTYL WAS EFFECTIVE SHE WAS ABLE TO INCREASE FOOD INTAKE DURING LUNCH
[2017-05-27 14:33] VITALS: BP 129/86
--- NOTE | 2017-05-27 17:23 | NUR ---
PRN ADMINISTRATION: PT WITH COMPLAINTS OF BACK PAIN AND INCREASED ANXIETY, PRN TORADOL AND VISTARIL ADMINISTERED. WILL RE-ASSESS PT FOR EFFECTIVENESS OF MEDICATIONS
[2017-05-27 17:45] VITALS: BP 129/82
--- NOTE | 2017-05-27 19:20 | NUR ---
END OF SHIFT NOTE/PRN RE-ASSESSMENT: PT IS IN STABLE CONDITION AT THIS TIME, PT IS ADMITTED TO [facility] FOR OPIATE/BENZO/ROBAXIN, PT HAS A LOW THRESHOLD FOR PAIN AND ANXIETY AND IS CONTINUING TO ASK FOR MULTIPLE PRN MEDICATIONS. PT LAST CIWA 8 DESPITE HAVING V/S WNL . PT STATES VISTARIL AND TORADOL WERE SOMEWHAT EFFECTIVE. PT ATTENDED GROUPS AND ACTIVITIES THROUGHOUT THE SHIFT. WILL ENDORSE PT TO RADIO PRODUCER NURSE.
[2017-05-27 20:00] VITALS: BP 130/90
--- NOTE | 2017-05-27 20:00 | NUR ---
START OF SHIFT NOTE RECEIVED REPORT FROM DAY SHIFT NURSE. PATIENT IS A 56 YEAR OLD FEMALE, ADMITTED FOR BENZO DEPENDENCE. PATIENT IS ON 5 DAY ATIVAN TAPER. PATIENT WAS GIVEN PRN VISTARIL,CLONIDINE , TORADOL IM AND BENTYL. LAST CIWA 8. PER DAY SHIFT NURSE . PATIENT CONTINUES TO ASK FOR PRN MEDICATION DESPITE OF HAVING WNL VS. PATIENT IN ROOM, ALERT AND ORIENTED X 4. RESPIRATION EVEN AND UNLABORED. PATIENT STATES SHES VERY ANXIOUS, SHE'S HAVING STOMACH CRAMPS, SLIGHTLY AGITATED, NO N/V, RELAXATION TECHNIQUE PROVIDED. PATIENT C/O GENERALIZED BODY ACHES 06/21. SAFETY MEASURES IN PLACE. CALL LIGHT IN REACH. WILL CONTINUE TO MONITOR.
[2017-05-27] MEDS: TRAZODONE 100 MG TABLET PO SCH (21:00)
--- NOTE | 2017-05-27 21:00 | NUR ---
TRAZADONE REFUSED PATIENT REFUSED TRAZADONE . EXPLAINED RISKS/BENEFITS. WILL CONTINUE TO MONITOR
[2017-05-27] MEDS: DULOXETINE 20 MG CAPSULE.DR PO SCH (21:10)
[2017-05-27] MEDS: CLONIDINE HCL 0.2 MG TABLET PO SCH (21:10)
--- NOTE | 2017-05-27 21:10 | NUR ---
PRN BENTYL AND BENADRYL ADMINISTRATION PATIENT C/O STOMACH CRAMPS AND REQUESTS FOR SLEEP AID. PRN BENTYL AND BENADRYL GIVEN. WILL MONITOR FOR EFFECTIVENESS
[2017-05-27] MEDS: diphenhydrAMINE 50 MG CAPSULE PO PRN (21:11)
--- NOTE | 2017-05-27 22:10 | NUR ---
PRN NELLIE RE-ASSESSMENT PATIENT STATES HER STOMACH CRAMPS SUBSIDED. NELLIE HELPFUL. WILL CONTINUE TO MONITOR.
--- NOTE | 2017-05-27 23:41 | NUR ---
PRN VISTARIL ADMINISTRATION PATIENT STATES SHE'S ANXIOUS AND STILL UNABLE TO SLEEP. WILL MONITOR FOR EFFECTIVENESS
[2017-05-28] VITALS: BP 115/72
--- NOTE | 2017-05-28 00:30 | NUR ---
EASTON JI RE-ASSESSMENT PATIENT ASLEEP AT THIS TIME. WILL CONTINUE TO MONITOR
--- NOTE | 2017-05-28 00:41 | NUR ---
PRN VISTARIL RE-ASSESSMENT PATIENT IN BED WILL HER EYES CLOSED. RESPIRATION EVEN AND UNLABORED. WILL CONTINUE TO MONITOR.
--- NOTE | 2017-05-28 04:00 | NUR ---
CIWA/VS PATIENT ASLEEP. CIWA UNABLE TO ASSESS. RESPIRATION EVEN AND UNLABORED. RR 14. SAFETY MEASURES IN PLACE. CALL LIGHT IN REACH. WILL CONTINUE TO MONITOR
[2017-05-28] MEDS: DICYCLOMINE HCL 20 MG TABLET PO PRN (06:28)
[2017-05-28] MEDS: HYDROXYZINE PAMOATE 25 MG CAPSULE PO PRN ×3 (06:28→21:33)
--- NOTE | 2017-05-28 06:28 | NUR ---
PRN VISTARIL AND BENTYL ADMINISTRATION PATIENT STATES SHE'S ANXIOUS AND HAS STOMACH CRAMPS. PRN VISTARIL AND BENTYL GIVEN. WILL MONITOR FOR EFFECTIVENESS
--- NOTE | 2017-05-28 07:17 | NUR ---
END OF SHIFT NOTE MONITORED THROUGHOUT SHIFT. PATIENT IS ON 5 DAY ATIVAN TAPER, TOLERATED. NO ADVERSE REACTION. PATIENT WAS ANXIOUS MOST OF THE SHIFT, CONTINUE TO REDIRECT PATIENT AND RELAXATION TECHNIQUE PROVIDED. PATIENT REMAIN ALERT AND ORIENTED X 4. RESPIRATION EVEN AND UNLABORED.PATIENT WAS GIVEN VISTARIL X 2, BENTYL X 2 AND BENADRYL. SAFETY MEASURES IN PLACE. CALL LIGHT IN REACH. WILL CONTINUE TO MONITOR.SLEPT 6 HOURS. FLUID INTAKE 1,855 ML.VOIDED X 6. BM X 1. LAST CIWA 4.
--- NOTE | 2017-05-28 07:28 | NUR ---
PRN VISTARIL AND BENTYL RE-ASSESSMENT PER PATIENT BENTYL IS HELPFUL, NO STOMACH CRAMPING AT THIS TIME. VISTARIL MILDLY EFFECTIVE. RELAXATION TECHNIQUE PROVIDED. WILL CONTINUE TO MONITOR
--- NOTE | 2017-05-28 07:50 | NUR ---
START OF SHIFT NOTE Received patient this morning Aox4. Patient reports feeling a lot of pain, stomach cramps, and she reports being anxious. Patient requesting specific PRN medications upon assessment. She is on a 5 day Ativan taper. Last CIWA 4 per night nurse. PRN Benadryl, Bentyl x2, and Vistaril x2 given per night nurse and patient slept 6 hours. Encouraged patient to increase fluid intake. Encouraged patient to take a shower and attend groups and activities this shift. Will provide safe and supportive environment. Will monitor closely and offer help as needed. All needs currently met.
[2017-05-28 08:00] VITALS: BP 141/76
[2017-05-28] MEDS: MULTIVITAMINS,THERAPEUTIC TABLET PO SCH (08:15)
[2017-05-28] MEDS: CLONIDINE HCL 0.1 MG TABLET PO PRN ×2 (08:15→23:27)
[2017-05-28] MEDS: TOPIRAMATE 25 MG PO SCH ×2 (08:15→20:19)
[2017-05-28] MEDS: BACLOFEN 20 MG TABLET PO SCH ×3 (08:15→20:19)
[2017-05-28] MEDS: GABAPENTIN 300 MG CAPSULE PO SCH ×3 (08:15→20:19)
--- NOTE | 2017-05-28 08:15 | NUR ---
PRN MEDICATIONS TORADOL GIVEN FOR WRIST PAIN 9/10 AND GENERALIZED BODY PAIN. CLONIDINE GIVEN FOR C/O ANXIETY. WILL REASSESS.
[2017-05-28] MEDS: KETOROLAC TROMETHAMINE 30 MG INJ IM PRN ×3 (08:16→21:34)
[2017-05-28] MEDS ORDERED: LORAZEPAM 1 MG TABLET PO SCH (09:00)
--- NOTE | 2017-05-28 09:50 | NUR ---
PRN REASSESSMENT PATIENT REPORTS DECREASE IN ANXIETY. SHE REPORTS PAIN HAS DECREASED FROM 9/10 TO 4/10. WILL MONITOR
[2017-05-28] MEDS ORDERED: HYDROXYZINE PAMOATE 25 MG CAPSULE PO ONE (11:45)
[2017-05-28 12:00] VITALS: BP 113/73
[2017-05-28 13:55] LABS: *AMPHETAMINE, URINE NEGATIVE (NEGATIVE); *BARBITURATE, URINE NEGATIVE (NEGATIVE); *CANNABINOID, URINE NEGATIVE (NEGATIVE); *COCCAINE, URINE NEGATIVE (NEGATIVE); *OPIATE, URINE NEGATIVE (NEGATIVE); *PHENCYCLIDINE SCREEN,URINE NEGATIVE (NEGATIVE)
[2017-05-28] MEDS: CLONIDINE HCL 0.2 MG TABLET PO SCH ×2 (14:34→20:18)
--- NOTE | 2017-05-28 14:39 | NUR ---
PRN MEDICATIONS PRN TORADOL IM INJECTION GIVEN FOR GENERALIZED BODY PAIN 06/21 AND WRIST PAIN 07/22 WILL REASSESS
--- NOTE | 2017-05-28 15:20 | NUR ---
PRN REASSESSMENT Patient reports her pain had decreased to 4/10. Will monitor.
[2017-05-28 16:00] VITALS: BP 112/77
--- NOTE | 2017-05-28 16:54 | NUR ---
PRN MEDICATIONS VISTARIL GIVEN FOR ANXIETY. WILL REASSESS.
[2017-05-28] MEDS ORDERED: IBUP-1957 PO (16:55)
[2017-05-28] MEDS ORDERED: CLON0.2T12 PO (16:55)
[2017-05-28] MEDS ORDERED: TRAZ-147 PO (16:55)
[2017-05-28] MEDS ORDERED: GABA-534 PO (16:55)
[2017-05-28] MEDS ORDERED: BACL20TA PO (16:55)
[2017-05-28] MEDS ORDERED: DULO20CA PO (16:55)
[2017-05-28] MEDS ORDERED: HYDR-3895 PO (16:55)
[2017-05-28] MEDS ORDERED: DICY20TA28 PO (16:55)
[2017-05-28] MEDS ORDERED: DIPH50CA37 PO (16:55)
--- NOTE | 2017-05-28 17:25 | NUR ---
PRN MEDICATIONS Patient reports improvement in anxiety. patient appears more calm. will monitor
--- NOTE | 2017-05-28 18:26 | NUR ---
END OF SHIFT NOTE Patient completed Ativan taper.. PRN Toradolx2, Clonidine, and Vistaril given during shift with effectiveness. Last CIWA 4. Patient scheduled for discharge tomorrow. Patient attended groups and activities and socialized with peers. Vital signs stable. All needs have been met. Safety measures in place. Will endorse to night nurse
[2017-05-28 20:00] VITALS: BP 124/80
--- NOTE | 2017-05-28 20:00 | NUR ---
START OF SHIFT NOTE RECEIVED REPORT FROM DAY SHIFT NURSE. 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 PATIENT'S DRUG OF CHOICE ARE TEMAZEPAM 120 MG FOR 4-5 YEARS , SUBOXONE , QUIT 2 WEEKS AGO UNTIL THE DAY BEFORE HER ADMISSION AND ROBAXIN 750 MG FOR 3 WEEKS. PATIENT IS MEDICALLY CLEARED TO BE DISCHARGED TOMORROW. PATIENT WAS GIVEN TORADOL X 2 AND VISTARIL . LAST CIWA 4. PATIENT ALERT AND ORIENTED X 4. RESPIRATION EVEN AND UNLABORED. PATIENT STATES SHE'S LEAVING TOMORROW, SHE'S ANXIOUS AND HAVING GENERALIZED BODY ACHES, AGITATED , BARELY SWEATING , NO /V. RELAXATION TECHNIQUES PROVIDED. ON FALL PRECAUTION. SKIN INTACT. SAFETY MEASURES IN PLACE. CALL LIGHT IN REACH. WILL CONTINUE TO MONITOR
[2017-05-28] MEDS: DULOXETINE 20 MG CAPSULE.DR PO SCH (20:18)
[2017-05-28] MEDS: diphenhydrAMINE 50 MG CAPSULE PO PRN (20:19)
--- NOTE | 2017-05-28 20:19 | NUR ---
EASTON JI ADMINISTRATION PATIENT REQUESTS FOR SLEEP AID. PER PATIENT "I WANT TO SLEEP EARLY BECAUSE I'M LEAVING TOMORROW". WILL MONITOR FOR EFFECTIVENESS.
--- NOTE | 2017-05-28 21:33 | NUR ---
PRN VISTARIL AN TORADOL IM ADMINISTRATION PATIENT C/O ANXIETY AND GENERALIZED BODY ACHES 06/21. PRN VISTARIL AND TORADOL IM GIVEN. WILL MONITOR FOR EFFECTIVENESS
--- NOTE | 2017-05-28 22:33 | NUR ---
PRN VISTARIL/TORADOL IM RE-ASSESSMENT PAIN LEVEL 2/10 AT THIS TIME. ANXIETY MILDLY EFFECTIVE, RELAXATION TECHNIQUE PROVIDED. WILL CONTINUE TO MONITOR
[2017-05-28] MEDS: ACETAMINOPHEN 325 MG TABLET PO PRN (23:23)
--- NOTE | 2017-05-28 23:23 | NUR ---
PRN TYLENOL AND CATAPRES ADMINISTRATION PATIENT STATES SHE'S STILL ANXIOUS AND C/O BODY ACHES . PRN TYLENOL AND CATAPRES GIVEN. WILL MONITOR FOR EFFECTIVENESS
[2017-05-29] VITALS: BP 111/75
--- NOTE | 2017-05-29 00:30 | NUR ---
EASTON JI RE-ASSESSMENT PATIENT ASLEEP AT THIS TIME. RESPIRATION EVEN AND UNLABORED.SAFETY MEASURES IN PLACE. CALL LIGHT IN REACH. WILL CONTINUE TO MONITOR.
--- NOTE | 2017-05-29 03:23 | NUR ---
EASTON WADE AND CATAPRES RE-ASSESSMENT PATIENT IN BED ASLEEP AT THIS TIME. NO FACIAL GRIMACING NOTED. NO S/S OF DISTRESS. WILL CONTINUE TO MONITOR. Addendum: 05/29/17 at 0434 by HUMBERTO JOSHUA LVN ERROR : EASTON RE-ASSESSMENT WAS AT 0023
[2017-05-29 04:00] VITALS: BP 133/79
[2017-05-29] MEDS: HYDROXYZINE PAMOATE 25 MG CAPSULE PO PRN ×2 (04:15→09:15)
[2017-05-29] MEDS: DICYCLOMINE HCL 20 MG TABLET PO PRN (04:15)
[2017-05-29] MEDS: IBUPROFEN 800 MG TABLET PO PRN ×2 (04:15→09:20)
--- NOTE | 2017-05-29 04:15 | NUR ---
PRN VISTARIL/MOTRIN/BENTYL ADMINISTRATION PATIENT C/O ANXIETY, STOMACH CRAMPS AND GENERALIZED BODY ACHES 05/21. WILL MONITOR FOR EFFECTIVENESS
--- NOTE | 2017-05-29 05:15 | NUR ---
PRN VISTARIL/MOTRIN/BENTYL RE-ASSESSMENT PATIENT IN BED ASLEEP AT THIS TIME. NO FACIAL GRIMACING . NO S/S OF DISTRESS. WILL CONTINUE TO MONITOR.
--- NOTE | 2017-05-29 07:15 | NUR ---
END OF SHIFT NOTE MONITORED PATIENT THROUGHOUT SHIFT. 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 PATIENT IS MEDICALLY CLEARED TO BE DISCHARGED TODAY. PATIENT WAS PRN GIVEN TORADOL, BENADRYL, BENTYL, VISTARIL, MOTRIN , TYLENOL AND CLONIDINE . PATIENT REMAIN ALERT AND ORIENTED X 4. RESPIRATION EVEN AND UNLABORED. PATIENT CONTINUES TO ASK FOR PRN MEDICATION DESPITE HAVING WNL VS. CONTINUE TO REDIRECT PATIENT AND RELAXATION TECHNIQUES PROVIDED. PATIENT REMAIN FREE OF INJURY. ON FALL PRECAUTION. SKIN INTACT. SAFETY MEASURES IN PLACE. CALL LIGHT IN REACH. WILL CONTINUE TO MONITOR. SLEPT 6 HOURS. FLUID INTAKE 1,651 ML. VOIDED X 2. NO BM. LAST CIWA 2 .
[2017-05-29 08:00] VITALS: BP 142/92
--- NOTE | 2017-05-29 08:15 | NUR ---
START OF SHIFT: RECEIVED PT A/O X 4. SHE REPORTS SOME ANXIETY AND GENERALIZED BACK PAIN /10 BUT STATES SHE FEELS PRETTY GOOD. DISCHARGE PLANNING IN PROGRESS. SHE STATES SHE FEELS ENTHUSIASTIC ABOUT GOING TO TREATMENT AND STAYING CLEAN. PRN MOTRIN AND PRN VISTARIL GIVEN. WILL CONTINUE TO MONITOR AND PROVIDE SUPPORT.
[2017-05-29] MEDS: GABAPENTIN 300 MG CAPSULE PO SCH (09:15)
[2017-05-29] MEDS: BACLOFEN 20 MG TABLET PO SCH (09:15)
[2017-05-29] MEDS: MULTIVITAMINS,THERAPEUTIC TABLET PO SCH (09:16)
[2017-05-29 09:17] VITALS: BP 142/92
[2017-05-29] MEDS: CLONIDINE HCL 0.2 MG TABLET PO SCH (09:17)
[2017-05-29] MEDS: TOPIRAMATE 25 MG PO SCH (09:20)
--- NOTE | 2017-05-29 11:25 | NUR ---
DISCHARGE: PTIS A/O X 4. SHE DENIES S/I AND H/I. SHE STATES THE VISTARIL AND MOTRIN WAS EFFECTIVE. EDUCATED PT ON DISCHARGE INSTRUCTIONS AND MEDICATIONS. PT EXPRESSED VERBAL UNDERSTANDING OF EDUCATION. BELONGINGS RETURNED. METHODS EXAMINER ESCORTED PT TO [facility] WHERE SHE WAS TRANSFERRED BY MARK SERRATO TO [facility] [place] AT 1042.
== END 2017-05-29 10:42 | disposition other institution (70) | DRG 895 ==
LOC: SRC 11:27
PROVIDERS: ADMIT Internal Medicine; ATTEND Internal Medicine
PROC: HZ2ZZZZ Detoxification Services for Substance Abuse Treatment (ICD-10-PCS; principal; 2017-05-23)
PROC: HZ41ZZZ Group Counseling for Substance Abuse Treatment, Behavioral (ICD-10-PCS; 2017-05-25)
PROC: HZ31ZZZ Individual Counseling for Substance Abuse Treatment, Behavioral (ICD-10-PCS; 2017-05-25)
DX: F11.23 Opioid dependence with withdrawal (principal); F33.1 Major depressive disorder, recurrent, moderate; F13.230 Sedative, hypnotic or anxiolytic dependence with withdrawal, uncomplicated; F41.9 Anxiety disorder, unspecified; G43.909 Migraine, unspecified, not intractable, without status migrainosus; G47.00 Insomnia, unspecified; Z79.899 Other long term (current) drug therapy; Z81.8 Family history of other mental and behavioral disorders; Z81.3 Family history of other psychoactive substance abuse and dependence; Z80.9 Family history of malignant neoplasm, unspecified; F17.200 Nicotine dependence, unspecified, uncomplicated; R73.9 Hyperglycemia, unspecified; R74.8 Abnormal levels of other serum enzymes
CPT/HCPCS: 36415; 70030-TC; 71010; 80307; 83735; 84443; 84703; 85025; 86580; 86592; 86705; 86803; 87340; 87806; A4663; G0480; J1885; Q0163